=== PATIENT | male | born 1940 | race African-American/Black ===

== ENCOUNTER 2016-06-06 14:06 | Day surgery (SDC) | payer MEDICARE, OTHER ==
[2016-06-06] VITALS (8 sets, daily range): BP systolic 109–157; BP diastolic 60–89; PULSE 64–91; TEMP 98.2–99.1
[~2016-06-06] VITALS: Ht 167.6 cm; Wt 66.8 kg
[2016-06-06] MEDS ORDERED: PLAVIX 75MG TAB75 MG PO (14:43)
[2016-06-06] MEDS ORDERED: ASPIRIN 32325 MG/TAB PO (14:44)
[2016-06-06] MEDS ORDERED: LOPRESSOR 550 MG/TAB PO (14:45)
[2016-06-06] MEDS ORDERED: PROSCAR 5MG5 MG PO (14:45)
[2016-06-06] MEDS ORDERED: FLOMAX 0.40.4 MG/CAP PO (14:46)
[2016-06-06] MEDS ORDERED: ARICEPT23 MG PO (14:47)
[2016-06-06] MEDS ORDERED: NAMENDA XR 28MG PO (14:47)
[2016-06-06] MEDS ORDERED: RT ADVAIR 228 DISKUS IH (14:48)
[2016-06-06] MEDS ORDERED: ZANTAC 150MG T150 MG PO (14:48)
[2016-06-06] MEDS ORDERED: ALBUTEROL0.83 MG/ML IH (14:49)
[2016-06-06] MEDS ORDERED: MULTI VITAMIN W PO (14:50)
== END 2016-06-06 20:50 | disposition home or self-care (01) ==
LOC: SDCO 14:06 → JCC 18:13 → SDCO 18:15
DX: N20.1 Calculus of ureter (principal); N40.0 Benign prostatic hyperplasia without lower urinary tract symptoms; E78.00 Pure hypercholesterolemia, unspecified
CPT/HCPCS: OP; C1769; C2617; J0690; J1100; J1885; J2405; J2704; J3010; J7120; Q9967

== ENCOUNTER 2016-06-11 14:34 | Day surgery (SDC) | payer MEDICARE, OTHER ==
[~2016-06-11] VITALS: Ht 167.6 cm; Wt 67.1 kg
[~2016-06-11 14:34] MED LIST: ALBUTEROL0.83 MG/ML IH; ARICEPT23 MG PO; ASPIRIN 32325 MG/TAB PO; FLOMAX 0.40.4 MG/CAP PO; LOPRESSOR 550 MG/TAB PO; MULTI VITAMIN W PO; NAMENDA XR 28MG PO; PLAVIX 75MG TAB75 MG PO; PROSCAR 5MG5 MG PO; RT ADVAIR 228 DISKUS IH; ZANTAC 150MG T150 MG PO
[2016-06-11 14:56] VITALS: BP 141/71; PULSE 60; TEMP 97.9
[2016-06-11 17:40] VITALS: BP 142/73; PULSE 66
[2016-06-11 17:55] VITALS: BP 138/54; PULSE 64
[2016-06-11 18:10] VITALS: BP 147/68; PULSE 70
[2016-06-11 18:25] VITALS: BP 138/53; PULSE 70
[2016-06-11 21:58] VITALS: BP 116/80; PULSE 87; TEMP 97.5
== END 2016-06-11 20:20 | disposition home or self-care (01) ==
LOC: SDCO 14:34 → SURG 17:46 → SDCO 20:20
DX: N20.1 Calculus of ureter (principal); R10.11 Right upper quadrant pain; R10.12 Left upper quadrant pain
CPT/HCPCS: OP; C1769; J0690; J1100; J2704; J2765; J3010; J7120; Q9967